=== PATIENT | male | born 1975 | race Two or more races ===

== ENCOUNTER 2024-07-08 11:02 | Emergency (ER) | payer OTHER ==
[~2024-07-08] VITALS: Ht 172.7 cm; Wt 79.4 kg
[2024-07-08] MEDS ORDERED: RINGERS SOLUTION,LACTATED 1,000 ML IV STA (12:48)
[2024-07-08] MEDS ORDERED: MEPERIDINE HCL/PF 50 MG/ML VIAL IM STA (12:49)
[2024-07-08] MEDS ORDERED: PROMETHAZINE HCL 25 MG/ML AMPUL IM STA (12:50)
[2024-07-08 13:15] LABS: HEMATOCRIT 47.4 % (39.0-48.0); HEMOGLOBIN 16.5 g/dL (13-16.00); MEAN CELL VOLUME 87.5 fL (80.0-100.00); MEAN CORPUSCULAR HEMOGLOBIN 30.5 pg (27.00-32.0); MEAN CORPUSCULAR HGB CONC 34.8 g/dl (32.0-36.0); PLATELET COUNT 186 K/uL (150-450); RED BLOOD COUNT 5.42 M/uL (4.00-6.00)
[2024-07-08 14:09] LABS: INR 1.13; PARTIAL THROMBOPLASTIN TIME 26.8 SECONDS (22.0-34.0); PROTHROMBIN TIME 12.2 SECONDS (9.0-11.5)
[2024-07-08 14:11] LABS: ALBUMIN 4.3 gm/dL (3.4-5.0); BILIRUBIN TOTAL 1.15 mg/dL (0.3-1.2); BILIRUBIN,CONJUGATED 0.48 mg/dL (0.0-0.2); BILIRUBIN,UNCONJUGATED 0.67 mg/dL (0.0-0.6); CALCIUM 10.5 mg/dL (8.5-10.1); CREATININE SERUM 0.88 mg/dL (0.70-1.30); GFR 91.66; POTASSIUM 4.37 mEq/L (3.5-5.1); TOTAL PROTEIN 7.5 gm/dL (6.4-8.2)
[2024-07-08 14:46] LABS: PH,URINE 7.5 (5.0-8.0); URINE APPEARANCE Clear; URINE BILIRRUBIN Negative (NEGATIVE); URINE BLOOD Negative; URINE COLOR Yellow; URINE GLUCOSE Negative (NEGATIVE); URINE KETONE Negative (NEGATIVE); URINE LEUKOCYTE Trace; URINE NITRATE Negative; URINE PROTEIN Negative (NEGATIVE); URINE UROBILINOGEN 0.2 E.U./dl
[2024-07-08 14:50] LABS: URINE WBC 5.6 uL (0.0-23.2)
[2024-07-08 15:05] LABS: URINE BACTERIA 2.5 uL (0.0-1933); URINE EPITHELIAL CELLS 0.3 uL (0.0-38.8); URINE RBC 0.7 uL (0.0-20.8)
[2024-07-08] MEDS ORDERED: PIPERACILLIN/TAZOBACTAM SODIUM 3.375 GM VIAL IV STA (15:36)
[2024-07-08] MEDS ORDERED: PIPERACILLIN/TAZOBACTAM SODIUM 3.375 GM VIAL IV ONE (15:48)
== END 2024-07-08 17:10 | disposition home or self-care (01) ==
LOC: ER 11:03
PROVIDERS: General Practice
DX: K80.20 Calculus of gallbladder without cholecystitis without obstruction (principal); I10 Essential (primary) hypertension